=== PATIENT | male | born 1960 | race Two or more races ===

== ENCOUNTER 2017-03-01 19:03 | Inpatient (IN) | payer BC, OTHER ==
[~2017-03-01] VITALS: Ht 190.5 cm; Wt 75.6 kg
[2017-03-01] MEDS ORDERED: ONDANSETRON HCL 4 MG/2 ML VIAL ONE (19:24)
[2017-03-01] MEDS ORDERED: MORPHINE SULF INJ 2 MG/ML SYRINGE 1ML ONE (19:24)
[2017-03-01] MEDS ORDERED: HYDROmorphone HCL 2 MG/ML VL IV ONE (21:30)
[2017-03-01] MEDS ORDERED: ONDANSETRON HCL 4 MG/2 ML VIAL IV ONE (21:30)
[2017-03-01] MEDS ORDERED: SODIUM CHLORIDE 0.9% 1,000 ML IV ONE (21:31)
[2017-03-01] MEDS ORDERED: MORPHINE SULF INJ 2 MG/ML SYRINGE 1ML IV ONE (22:30)
[2017-03-01 23:08] LABS: Basophils # (auto) 0.2 uL; Basophils % (auto) 1.1 % (0.0-2.0); Eosinophils # (auto) 0.1 uL; Eosinophils % (auto) 0.8 % (0.0-7.0); Hematocrit 43.3 % (41.0-53.0); Hemoglobin 14.6 g/dL (13.5-17.5); Lymphocytes # (auto) 2.2 uL; Mean Corpuscular Hgb Conc. 33.8 g/dL (32.0-36.0); Mean Corpuscular Volume 97.7 fL (80.0-100.0); Mean Platelet Volume 7.6 fL (6.9-10.8); Monocytes # (auto) 1.4 uL; Monocytes % (auto) 8.7 % (0.0-12.0); Neutrophils # (auto) 12.1 uL; Neutrophils % (auto) 75.4 % (37.0-80.0); Nucleated Red Blood Cells % 0.1 %; Platelet Count (auto) 276 10^3/uL (140-450); Red Cell Distribution Width 13.8 % (11.8-14.3); White Blood Cell 16.1 10^3/uL (4.4-10.8)
[2017-03-01 23:28] LABS: INR 0.91 (0.9-1.15); Partial Thromboplastin Time 26.9 sec (22.64-33.71); Prothrombin Time 9.9 sec (9.37-12.3)
[2017-03-01 23:31] LABS: Albumin 3.5 g/dL (3.4-5.0); Anion Gap 14 (5-15); Aspartate Aminotransferase 27 U/L (15-37); BUN/Creatinine Ratio 8.6; Blood Urea Nitrogen 6 mg/dL (7-18); Calcium 7.6 mg/dL (8.5-10.1); Carbon Dioxide 18 mmol/L (21-32); Chloride 111 mmol/L (98-107); GFR African American 150 mL/min; GFR Non-African American 124 mL/min; Glucose 85 mg/dL (74-106); Potassium 3.9 mmol/L (3.5-5.1); Sodium 143 mmol/L (136-145)
[2017-03-01 23:36] LABS: Alkaline Phosphatase 75 U/L (45-117); Bilirubin, Total 0.4 mg/dL (0.2-1.0)
[2017-03-02] MEDS ORDERED: HYDROmorphone HCL 2 MG/ML VL IV ONE (00:15)
[2017-03-02] MEDS ORDERED: ACETAMINOPHEN 500 MG TAB PO PRN (00:30)
[2017-03-02] MEDS ORDERED: ONDANSETRON HCL 4 MG/2 ML VIAL IV PRN (00:30)
[2017-03-02] MEDS ORDERED: chlordiazePOXIDE HCL 25 MG CAP PO PRN (02:00)
[2017-03-02] MEDS: HYDROcodone-ACET 5/325MG TAB PO PRN ×4 (02:17→20:32)
[2017-03-02] MEDS ORDERED: TEMAZEPAM 15 MG CAP PO PRN (03:00)
[2017-03-02] MEDS: SODIUM CHLORIDE 0.9% 1,000 ML IV SCH ×3 (04:15→20:32)
[2017-03-02] MEDS: MORPHINE SULF INJ 2 MG/ML SYRINGE 1ML IV PRN (07:05)
[2017-03-02 08:00] VITALS: BP 130/78
[2017-03-02 08:24] LABS: Basophils # (auto) 0.1 uL; Basophils % (auto) 0.6 % (0.0-2.0); Eosinophils # (auto) 0.1 uL; Eosinophils % (auto) 0.5 % (0.0-7.0); Hematocrit 40.2 % (41.0-53.0); Hemoglobin 13.6 g/dL (13.5-17.5); Lymphocytes # (auto) 1.3 uL; Lymphocytes % (auto) 10.8 % (10.0-50.0); Mean Corpuscular Hgb Conc. 33.8 g/dL (32.0-36.0); Mean Corpuscular Volume 97.6 fL (80.0-100.0); Mean Platelet Volume 7.3 fL (6.9-10.8); Monocytes # (auto) 1.7 uL; Monocytes % (auto) 14.1 % (0.0-12.0); Platelet Count (auto) 255 10^3/uL (140-450); Red Cell Distribution Width 13.6 % (11.8-14.3); White Blood Cell 12.2 10^3/uL (4.4-10.8)
[2017-03-02 08:56] LABS: BUN/Creatinine Ratio 10.6; Calcium 8.2 mg/dL (8.5-10.1); Potassium 3.9 mmol/L (3.5-5.1)
[2017-03-02 09:00] VITALS: BP 130/78
[2017-03-02] MEDS: THIAMINE HCL 100 MG/ML 2ML VIAL IV SCH (11:15)
[2017-03-02] MEDS: FOLIC ACID 1 MG TAB PO SCH (11:15)
[2017-03-02] MEDS: MULTIPLE VITAMIN TAB PO SCH (11:16)
[2017-03-02 13:00] VITALS: BP 117/76
[2017-03-02 17:22] VITALS: BP 125/85
[2017-03-02 20:47] LABS: Urine Bilirubin Negative (Negative); Urine Blood Negative /uL (Negative); Urine Color Yellow (Yellow); Urine Glucose Normal (Normal); Urine Ketone 3+ (Negative); Urine Mucus FEW (None Seen); Urine Nitrite Negative (Negative); Urine RBC <1 /hpf (0 - 3); Urine Squamous Epithelial Cell FEW /hpf (<5); Urine Urobilinogen Normal (Negative)
[2017-03-02 22:00] VITALS: BP 116/73
[2017-03-03 04:59] VITALS: BP 121/72
[2017-03-03] MEDS: HYDROcodone-ACET 5/325MG TAB PO PRN ×3 (05:53→21:46)
[2017-03-03] MEDS: SODIUM CHLORIDE 0.9% 1,000 ML IV SCH (06:34)
[2017-03-03 07:00] LABS: Basophils # (auto) 0.2 uL; Basophils % (auto) 1.4 % (0.0-2.0); Eosinophils # (auto) 0.3 uL; Eosinophils % (auto) 2.2 % (0.0-7.0); Hematocrit 39.8 % (41.0-53.0); Hemoglobin 13.5 g/dL (13.5-17.5); Lymphocytes % (auto) 16.6 % (10.0-50.0); Mean Corpuscular Hgb Conc. 33.8 g/dL (32.0-36.0); Mean Corpuscular Volume 97.8 fL (80.0-100.0); Mean Platelet Volume 8.1 fL (6.9-10.8); Monocytes # (auto) 1.9 uL; Monocytes % (auto) 15.7 % (0.0-12.0); Neutrophils # (auto) 7.6 uL; Neutrophils % (auto) 64.1 % (37.0-80.0); Nucleated Red Blood Cells % 0.1 %; Platelet Count (auto) 241 10^3/uL (140-450); Red Cell Distribution Width 13.4 % (11.8-14.3); White Blood Cell 11.8 10^3/uL (4.4-10.8)
[2017-03-03 07:22] LABS: BUN/Creatinine Ratio 6.9; Calcium 8.7 mg/dL (8.5-10.1); Potassium 4.1 mmol/L (3.5-5.1)
[2017-03-03 07:39] VITALS: BP 132/75
[2017-03-03] MEDS: FOLIC ACID 1 MG TAB PO SCH (09:34)
[2017-03-03] MEDS: MULTIPLE VITAMIN TAB PO SCH (09:34)
[2017-03-03] MEDS: THIAMINE HCL 100 MG/ML 2ML VIAL IV SCH (09:34)
[2017-03-03] MEDS ORDERED: CLINDAMYCIN 600MG IV 50 ML IV ONE (11:58)
[2017-03-03] MEDS ORDERED: BUPIVACAINE 0.25% INJ 50ML VIAL ONE (11:59)
[2017-03-03] MEDS ORDERED: fentaNYL CITRATE 100 MCG/2 ML VL ONE ×2 (12:06→12:34)
[2017-03-03] MEDS ORDERED: MIDAZOLAM HCL 1MG/1ML-2 ML VIAL ONE (12:07)
[2017-03-03] MEDS ORDERED: KETOROLAC TROMETH 30 MG/ML 1ML VIAL IV ONE (13:15)
[2017-03-03] MEDS ORDERED: fentaNYL CITRATE 100 MCG/2 ML VL IV PRN (13:15)
[2017-03-03] MEDS ORDERED: ONDANSETRON HCL 4 MG/2 ML VIAL IV ONE (13:15)
[2017-03-03] MEDS: HYDROmorphone HCL 2 MG/ML VL IV PRN ×3 (13:43→14:07)
[2017-03-03] MEDS: CLINDAMYCIN 600MG IV 50 ML IV SCH ×2 (15:08→21:46)
[2017-03-03 16:50] VITALS: BP 134/86
[2017-03-03] MEDS: MORPHINE SULF INJ 2 MG/ML SYRINGE 1ML IV PRN (21:04)
[2017-03-03 21:12] VITALS: BP 123/81
[2017-03-04] MEDS ORDERED: SODIUM CHLORIDE 0.9% 1,000 ML IV SCH (00:30)
[2017-03-04] MEDS: MORPHINE SULF INJ 2 MG/ML SYRINGE 1ML IV PRN ×2 (01:06→05:16)
[2017-03-04 05:00] VITALS: BP 121/79
[2017-03-04] MEDS: CLINDAMYCIN 600MG IV 50 ML IV SCH ×2 (05:15→13:36)
[2017-03-04] MEDS: HYDROcodone-ACET 5/325MG TAB PO PRN ×3 (07:37→17:16)
[2017-03-04 09:05] LABS: Hematocrit 37.6 % (41.0-53.0); Hemoglobin 12.7 g/dL (13.5-17.5)
[2017-03-04] MEDS ORDERED: ENOXAPARIN SOD 40 MG/0.4 ML SYRINGE SC SCH (10:00)
[2017-03-04] MEDS: MULTIPLE VITAMIN TAB PO SCH (10:18)
[2017-03-04] MEDS: FOLIC ACID 1 MG TAB PO SCH (10:18)
[2017-03-04] MEDS: THIAMINE HCL 100 MG/ML 2ML VIAL IV SCH (10:19)
[2017-03-04 13:00] VITALS: BP 137/75
[2017-03-04 16:42] VITALS: BP 137/75
[2017-03-05] MEDS ORDERED: THIAMINE HCL 100 MG TAB PO SCH (10:00)
== END 2017-03-04 17:30 | disposition home or self-care (01) | DRG 482 ==
LOC: ER 19:13 → TELE 19:14 → CENTRAL 03-02 03:40
PROVIDERS: ADMIT Nurse Practitioner Family; ATTEND Internal Medicine
PROC: 0QH706Z Insertion of Intramedullary Internal Fixation Device into Left Upper Femur, Open Approach (ICD-10-PCS; principal; 2017-03-03 12:06)
DX: S72.142A Displaced intertrochanteric fracture of left femur, initial encounter for closed fracture (principal); Z96.649 Presence of unspecified artificial hip joint; W19.XXXA Unspecified fall, initial encounter; W18.30XA Fall on same level, unspecified, initial encounter; Y93.K1 Activity, walking an animal; Y93.01 Activity, walking, marching and hiking; Y92.89 Other specified places as the place of occurrence of the external cause; Y99.8 Other external cause status
CPT/HCPCS: 36415; 71010; 73501; 73502; 76000; 80048; 80053; 81001; 84484; 85014; 85018; 85025; 85610; 85730; 93005; 93306; 96361; 96374; 96375; 96376; A4565; C1713; C1769; J2250; J2405; J3490